=== PATIENT | female | born 1960 | race Caucasian/White ===

== ENCOUNTER → 2018-08-04 | Outpatient (CLI) | payer BC, MEDICARE ==
--- NOTE | 2018-08-04 15:59 | RAD ---
CT lumbar spine without intravenous contrast History: Herniated disc. Degenerative disc disease. Unable to walk. Technique: Noncontrast CT of the lumbar spine was performed. Axial, sagittal, and coronal reconstructions were obtained. Exposure: One or more of the following individualized dose reduction techniques were utilized for this examination: 1. Automated exposure control 2. Adjustment of the mA and/or kV according to patient size 3. Use of iterative reconstruction technique Findings: Evaluation of spinal contents is limited by lack of intrathecal contrast There is no evidence of acute fracture or acute malalignment. No paravertebral soft tissue swelling is identified. There are 5 lumbar type vertebral bodies. No significant spinal canal stenosis or neural foraminal narrowing is appreciated at any level. Discectomy changes and anterior spinal fusion plates can be seen at L4-5 and L5-S1. No hardware loosening is identified. L1-2 level demonstrates mild bilateral facet hypertrophy. L2-3 level demonstrates mild bilateral facet hypertrophy and mild buckling of ligamentum flavum. L3-4 level demonstrates diffuse disc bulge. There is mild buckling of ligamentum flavum and mild bilateral facet hypertrophy. L4-5 level demonstrates moderate bilateral facet hypertrophy. There is mild buckling of ligamentum flavum. L5-S1 level demonstrates moderate-severe bilateral facet hypertrophy. Impression: 1. No evidence of acute traumatic injury to the lumbar spine. 2. Discectomy and anterior spinal fusion changes from L4 through S1. No hardware complication is identified. 3. Relatively mild multilevel degeneration. No significant spinal canal stenosis or neural foraminal narrowing is appreciated at any level. Electronically signed by: Colton Salazar MD (08/04/2018 3:56 PM) [id number]
== END | disposition home or self-care (01) ==
LOC: CT 15:24
PROVIDERS: ATTEND Family Medicine
DX: M51.36 Other intervertebral disc degeneration, lumbar region (principal)
CPT/HCPCS: 72131